=== PATIENT | female | born 1995 | race Two or more races ===

== ENCOUNTER 2019-04-09 05:35 | Emergency (ER) | payer MEDICAID ==
[~2019-04-09] VITALS: Ht 162.6 cm; Wt 63.5 kg
[2019-04-09 05:41] VITALS: BP 128/78
--- NOTE | 2019-04-09 05:41 | NUR ---
ED Nurse Note: pt brought in by ambulance from street accompanied by [employer]. per report, pt was running around [address] naked and screaming. pt admitted the episode. pt stated she is having a mental breakdown. pt stated she was recently diagnosed with schizophrenia but does not take any medication. pt denies any SI or HI. pt states she hears voices and the voices are telling her that she is worthless. pt is ambulatory. VSS
--- NOTE | 2019-04-09 05:57 | Emergency Room Report ---
History of Present Illness General Chief Complaint: Behavioral Complaint Source: Patient (Dominguez Rodrigez MD) Present Illness HPI Disclaimer: Please note that this report is being documented using [employer] technology. This can lead to erroneous entry secondary to incorrect interpretation by the dictating instrument. HPI: 24-year-old female arrives by EMS for evaluation of psychotic features and bizarre behavior. The patient was reportedly found naked walking around [facility] and brought for evaluation by EMS. She was agitated and stating that her schizophrenia was out of control. She denied any self-harm or ingestion of medication or illicit drugs. She had no complaints and states she was naked because she was having sex nearby, felt ashamed and then ran away without her clothing. She is currently stating that she hears voices but they do not tell her to harm herself and she has no SI or HI. Denies drug or alcohol use. She would like psychiatric evaluation. She comes in by EMS but not on psychiatric hold. She complained of mild shortness of breath while on the gurney but this has resolved. She is noting some swelling over the feet but she has been walking a lot recently and arrives without shoes. Denies injury. She denies any headache, vision changes, chest pain, abdominal pain, nausea, vomiting. She is afraid she might be . States she had an abnormal period 2 weeks ago. Denies any vaginal bleeding, dysuria, hematuria. PMH: Schizophrenia PSH: Denies Allergies: Denies Social Hx: Reports former drug use but no longer. Denies alcohol or tobacco use (Dominguez Rodrigez MD) Allergies: Coded Allergies: No Known Allergies (Unverified , 04/09/19) Patient History Last Menstrual Period: unk (Dominguez Rodrigez MD) Nursing Documentation-PMH Past Medical History: No History, Except For History Of Psychiatric Problem: Yes - SCHIZOPHRENIA (Dominguez Rodrigez MD) Review of Systems All Other Systems: negative except mentioned in HPI (Dominguez Rodrigez MD) Physical Exam Vital Signs Date Time Temp Pulse Resp B/P (MAP) Pulse Ox O2 Delivery O2 Flow Rate FiO2 04/09/19 05:36 98.6 88 16 132/78 (96) 98 Room Air General: Awake and alert, no acute distress HEENT: NC/AT. EOMI. PERRLA. Pupils are 4 mm. Moist mucous membranes Cardiovascular: RRR. S1 and S2 normal. No murmur appreciated Resp: Normal work of breathing. No cough, wheezing or crackles appreciated Abdomen: Abdomen is soft, nondistended. Nontender Skin: Intact. No abrasions, laceration or rash over the exposed skin. Abrasions over the great toes bilaterally. Subacute and healing. MSK: Moving all extremities. No obvious deformity. No unilateral calf swelling or tenderness. Lower extremities have symmetrical bulk and tone. Neuro: Awake and alert. Mild pressured speech but coherent. Few tangential thoughts. Reports hearing voices but does not appear to be responding to internal stimuli. Denies SI/HI. (Dominguez Rodrigez MD) Medical Decision Making Diagnostic Impression: Primary Impression: Psychosis ER Course Is a 24-year-old female with a reported history of schizophrenia presenting for evaluation of bizarre behavior. Patient is complaining of swelling of the lower extremities, concern over possible , shortness of breath that is now resolved and states she is hearing voices but denies any SI or HI. She arrives with stable vital signs and denies any ingestion. We will start broad metabolic, infectious and tox logic work-up. She will be given oral Haldol for her psychiatric symptoms. Disposition depending on lab work and reevaluation. (Dominguez Rodrigez MD) ER Course Patient was endorsed to me by Dr. Rodrigez. Patient was noted to be awake and alert no apparent distress. She is reportedly homeless. Patient states that she has some prior psychiatric history but is not currently taking any medications. Patient appears to be stable for outpatient mental health evaluation and denies suicidal thoughts. She does not appear to be under the influence of any drugs at this time.front services agent consult was obtained due to patient's homelessness.Patient is medically cleared for psychiatric placement. Laboratory Tests Test 04/09/19 05:45 White Blood Count 9.5 K/UL (4.8-10.8) Red Blood Count 3.81 M/UL (4.20-5.40) L Hemoglobin 9.0 G/DL (12.0-16.0) L Hematocrit 29.1 % (37.0-47.0) L Mean Corpuscular Volume 76 FL (80-99) L Mean Corpuscular Hemoglobin 23.5 PG (27.0-31.0) L Mean Corpuscular Hemoglobin Concent 30.8 G/DL (32.0-36.0) L Red Cell Distribution Width 16.4 % (11.6-14.8) H Platelet Count 293 K/UL (150-450) Mean Platelet Volume 6.2 FL (6.5-10.1) L Neutrophils (%) (Auto) 68.6 % (45.0-75.0) Lymphocytes (%) (Auto) 18.9 % (20.0-45.0) L Monocytes (%) (Auto) 6.0 % (1.0-10.0) Eosinophils (%) (Auto) 5.9 % (0.0-3.0) H Basophils (%) (Auto) 0.6 % (0.0-2.0) Urine Color Pale yellow Urine Appearance Clear Urine pH 6 (4.5-8.0) Urine Specific [place] 1.015 (1.005-1.035) Urine Protein Negative (NEGATIVE) Urine Glucose (UA) Negative (NEGATIVE) Urine Ketones Negative (NEGATIVE) Urine Blood 3+ (NEGATIVE) H Urine Nitrite Negative (NEGATIVE) Urine Bilirubin Negative (NEGATIVE) Urine Urobilinogen Normal MG/DL (0.0-1.0) Urine Leukocyte Esterase 2+ (NEGATIVE) H Urine RBC 2-4 /HPF (0 - 2) H Urine WBC 2-4 /HPF (0 - 2) Urine Squamous Epithelial Cells Few /LPF (NONE/OCC) Urine Bacteria Few /HPF (NONE) Urine HCG, Qualitative Negative (NEGATIVE) Sodium Level 140 MMOL/L (136-145) Potassium Level 4.4 MMOL/L (3.5-5.1) Chloride Level 106 MMOL/L (98-107) Carbon Dioxide Level 27 MMOL/L (21-32) Anion Gap 7 mmol/L (5-15) Blood Urea Nitrogen 10 mg/dL (7-18) Creatinine 1.3 MG/DL (0.55-1.30) Estimate Glomerular Filtration Rate 50.3 mL/min (>60) Glucose Level 86 MG/DL (74-106) Calcium Level 8.1 MG/DL (8.5-10.1) L Total Bilirubin 0.2 MG/DL (0.2-1.0) Aspartate Amino Transferase (AST) 21 U/L (15-37) Alanine Aminotransferase (ALT) 17 U/L (12-78) Alkaline Phosphatase 105 U/L (46-116) Total Creatine Kinase 90 U/L (26-308) Troponin I 0.001 ng/mL (0.000-0.056) Pro-B-Type Natriuretic Peptide 36 pg/mL (0-125) Total Protein 7.8 G/DL (6.4-8.2) Albumin 3.1 G/DL (3.4-5.0) L Globulin 4.7 g/dL Albumin/Globulin Ratio 0.7 (1.0-2.7) L Salicylates Level 0.5 ug/mL (2.8-20) L Urine Opiates Screen Negative (NEGATIVE) Acetaminophen Level < 2 MCG/ML (10-30) L Urine Barbiturates Screen Negative (NEGATIVE) Phencyclidine (PCP) Screen Negative (NEGATIVE) Urine Amphetamines Screen Negative (NEGATIVE) Urine Benzodiazepines Screen Negative (NEGATIVE) Urine Cocaine Screen Negative (NEGATIVE) Urine Marijuana (THC) Screen Negative (NEGATIVE) Serum Alcohol < 3 mg/dL (Mohinder Gordon MD) Last Vital Signs Date Time Temp Pulse Resp B/P (MAP) Pulse Ox O2 Delivery O2 Flow Rate FiO2 04/09/19 05:36 98.6 88 16 132/78 (96) 98 Room Air (Dominguez Rodrigez MD) Status: improved (Mohinder Gordon MD) Disposition: XFER TO PSYCH HOSP/UNIT Condition: Stable Dominguez Rodrigez MD Apr 09, 2019 05:57 Mohinder Gordon MD Apr 09, 2019 07:49
--- NOTE | 2019-04-09 05:57 | NUR ---
ED Nurse Note: urine and blood sample sent down to lab
--- NOTE | 2019-04-09 06:00 | NUR ---
ED Nurse Note: PO haldol administered. pt is in bed awake. no acute distress noted.
[2019-04-09 06:02] LABS: APPEARANCE,URINE CLEAR; BILIRUBIN, URINE NEGATIVE (NEGATIVE); COLOR,URINE PALE YELLOW; GLUCOSE, URINE (UA) NEGATIVE (NEGATIVE); KETONES,URINE NEGATIVE (NEGATIVE); LEUKOCYTE ESTERASE ,URINE 2+ (NEGATIVE); NITRITE,URINE NEGATIVE (NEGATIVE); PH,URINE 6 (4.5-8.0); PROTEIN,URINE NEGATIVE (NEGATIVE); UROBILINOGEN,URINE NORMAL MG/DL (0.0-1.0)
[2019-04-09 06:05] LABS: BASOPHILS % (AUTO) 0.6 % (0.0-2.0); EOSINOPHILS % (AUTO) 5.9 % (0.0-3.0); HEMATOCRIT 29.1 % (37.0-47.0); LYMPHOCYTES % (AUTO) 18.9 % (20.0-45.0); MEAN CORPUSCULAR VOLUME 76 FL (80-99); NEUTROPHILS % (AUTO) 68.6 % (45.0-75.0); PLATELET COUNT 293 K/UL (150-450); RED BLOOD COUNT 3.81 M/UL (4.20-5.40); RED CELL DISTRIBUTION WIDTH 16.4 % (11.6-14.8); WHITE BLOOD COUNT 9.5 K/UL (4.8-10.8)
[2019-04-09 06:12] LABS: ANION GAP 7 mmol/L (5-15); BLOOD UREA NITROGEN 10 mg/dL (7-18); CALCIUM 8.1 MG/DL (8.5-10.1); CARBON DIOXIDE 27 MMOL/L (21-32); CHLORIDE 106 MMOL/L (98-107); CREATININE 1.3 MG/DL (0.55-1.30); POTASSIUM 4.4 MMOL/L (3.5-5.1); SODIUM 140 MMOL/L (136-145)
[2019-04-09 06:16] LABS: ALANINE AMINOTRANSFERASE 17 U/L (12-78); ALBUMIN 3.1 G/DL (3.4-5.0); ALBUMIN/GLOBULIN RATIO 0.7 (1.0-2.7); ALKALINE PHOSPHATASE 105 U/L (46-116); ASPARTATE AMINO TRANSFERASE 21 U/L (15-37); BILIRUBIN,TOTAL 0.2 MG/DL (0.2-1.0); CREATINE KINASE 90 U/L (26-308)
--- NOTE | 2019-04-09 06:45 | NUR ---
ED Nurse Note: CXR at bedside
--- NOTE | 2019-04-09 07:12 | NUR ---
HAND-OFF: Report given to CHER Tomlinson .
[2019-04-09 07:46] VITALS: BP 105/59
--- NOTE | 2019-04-09 07:49 | NUR ---
ED Nurse Note: pt eval by rn. pt easily awakens to verbal stimuli. denies SI/HI or hallucinations. cooperative with rn care. states she has nowhere to be dc'd and no ability for f/u care. aware. pt to have sw consult as ordered. food offered to pt. charge master specialist made.
--- NOTE | 2019-04-09 08:52 | NUR ---
ED Nurse Note: food tray given to pt. aware awaiting sw consult
--- NOTE | 2019-04-09 09:57 | NUR ---
ED Nurse Note: pt eval by ioana syed. pt desires to have voluntary pysch admission. viscose cellar charge hand aware and facilities being called for placement.
--- NOTE | 2019-04-09 10:00 | NUR ---
Social Service Note JOZEF met with patient to assess for homelessness and community resources. Patient is alert, oriented and verbally responsive. Patient states she ran away from her family in [facility]. Patient's mother's name is Gutierrez Lazaro. Patient has not been reported missing in [place]. JOZEF left a message for [facility] missing persons [phone] and [phone]. Patient states she has been in [place] for 2 years and has not been in contact with her family. Patient requested for JOZEF to attempt to contact family. JOZEF completed a skip trace, JOZEF identified family members however have not been unable to locate a viable phone number, social media also explored. Patient states she was diagnosed with schizophrenia since being in [place]. Patient states however she has not followed up with mental health clinics. Patient states she receives food stamps but has been denied GR due to lack of no ID. Patient with straight [facility]. During interview patient responding to internal stimuli. Patient requesting voluntary placement in a psych facility for medication management. Patient is fearful that she will walk into traffic if she doesn't receive psychiatric treatment. Patient states she is unable to control the voices. Patient states she has been homeless since arriving in [place]. Patient states she hitchhiked to [place] and didn't have a housing plan. Patient states she has attempted to utilized homeless shelters but has not been successful. Patient states she primarily stays around the [facility] area. This is an area in which she is familiar. JOZEF faxed referral to [facility]. intake [phone] (p) [phone]. Nursing will follow up on acceptance. JOZEF discused with BERNA DOWNEY.
--- NOTE | 2019-04-09 12:00 | NUR ---
ED Nurse Note: pt remains without changes in mentation, remains cooperative with rn care. denies c/o. awaiting voluntary [facility] bed availability.
--- NOTE | 2019-04-09 14:00 | NUR ---
ED Nurse Note: pt remains without new c/o cooperative with rn care.
--- NOTE | 2019-04-09 14:42 | Diagnostic Imaging Report ---
Indication: Shortness of breath Technique: One view of the chest Comparison: none Findings: Lungs and pleural spaces are clear. Heart size is normal. Impression: No acute process
[2019-04-09 16:23] VITALS: BP 98/53
--- NOTE | 2019-04-09 16:24 | NUR ---
ED Nurse Note: pt given updates re psych bed not avail at this time declines po intake or voiding desire. resting in room with eyes closed and easily awakens.
--- NOTE | 2019-04-09 16:40 | NUR ---
ED Nurse Note: pt ambulating to brp to void
--- NOTE | 2019-04-09 17:15 | NUR ---
ED Nurse Note: regular dietary dinner tray given to pt. pt remains calm and cooperative.
--- NOTE | 2019-04-09 19:14 | NUR ---
ED Nurse Note: report given to oncoming dshift rn, assuming care. aware pt to be admitted to [facility]. pt remains cooperative with plan. rn aware of clothin location that is provided for pt.
[2019-04-09 19:20] VITALS: BP 110/69
--- NOTE | 2019-04-09 19:20 | NUR ---
ED Nurse Note: Recieved report from Kayley KWON. Pt awake, alert, oriented, verbally responisve. Apperas to be calm and cooperative. No SOB. VSS.
--- NOTE | 2019-04-09 21:00 | NUR ---
ED Nurse Note: REPORT GIVEN TO CHER MEJIA FROM [facility], PT GOING TO [id number]
[2019-04-09 22:30] VITALS: BP 112/71
[2019-04-09 22:50] VITALS: BP 112/71
--- NOTE | 2019-04-09 22:50 | NUR ---
ED Nurse Note: Pt cleared by TAWANDA to be transferred to [facility] accompanied by 2 EMT via [facility]. Report given to Bharat KWON. Pt alert and oriented, verbally responisve. No SOB. Breathing even and unlabored. Afebrile. ID band and IV line removed. All belongings was given to the patient. VSS.
--- NOTE | 2019-04-12 00:18 | Cardiology Report ---
APPROVED REPORT EKG Measurement Heart [id number] Normal sinus rhythm Normal ECG
== END 2019-04-09 22:50 ==
LOC: EDBD 05:35 → EMR 06:15
DX: F29 Unspecified psychosis not due to a substance or known physiological condition (principal); F20.9 Schizophrenia, unspecified; R60.0 Localized edema; R06.02 Shortness of breath; Z59.0 Homelessness
CPT/HCPCS: 36415; 71045; 80053; 80307; 81003; 81025; 82550; 83880; 84484; 85025; 93005; G0480; G0481; Z7502; 99284

== ENCOUNTER 2019-04-24 14:23 | Emergency (ER) | payer MEDICAID ==
[~2019-04-24] VITALS: Ht 154.9 cm; Wt 81.6 kg
[2019-04-24 14:53] LABS: APPEARANCE,URINE CLEAR; BILIRUBIN, URINE NEGATIVE (NEGATIVE); COLOR,URINE PALE YELLOW; GLUCOSE, URINE (UA) NEGATIVE (NEGATIVE); KETONES,URINE NEGATIVE (NEGATIVE); LEUKOCYTE ESTERASE ,URINE 1+ (NEGATIVE); NITRITE,URINE NEGATIVE (NEGATIVE); PH,URINE 9 (4.5-8.0); PROTEIN,URINE NEGATIVE (NEGATIVE); UROBILINOGEN,URINE NORMAL MG/DL (0.0-1.0)
--- NOTE | 2019-04-24 14:53 | NUR ---
ED Nurse Note: Patient walked into ED C/O of N/V since this morning and epigastric pain 12/31. A/Ox3 but patient reports feeling disoriented and states, "I feel like I'm in [place]." She also reports taking a pill this morning which she cannot remember what it's for. Steady gait noted. No SOB or CP. Urine collected and sent to lab.
--- NOTE | 2019-04-24 15:18 | Emergency Room Report ---
History of Present Illness General Chief Complaint: Vomiting Source: Patient Present Illness HPI 24-year-old female presents ED for evaluation. Complaining of nausea and vomiting. Started this morning had one episode of vomiting. Feels nauseous. States symptoms started shortly after taking a new medication. Was recently diagnosed with schizophrenia. Patient residing in a mental health facility. Brought here by a friend. Denies SI or HI. Denies drug use. No other aggravating relieving factors. Denies any other associated symptoms Allergies: Coded Allergies: No Known Allergies (Unverified , 04/09/19) Patient History Past Medical History: psych hx Past Surgical History: none Pertinent Family History: none Social History: Denies: smoking, alcohol use, drug use Last Menstrual Period: 2 WEEKS AGO Now: No Immunizations: UTD Reviewed Nursing Documentation: PMH: Agreed; PSxH: Agreed Nursing Documentation-PMH Past Medical History: No Stated History Review of Systems All Other Systems: negative except mentioned in HPI Physical Exam Vital Signs Date Time Temp Pulse Resp B/P (MAP) Pulse Ox O2 Delivery O2 Flow Rate FiO2 04/24/19 14:27 97.9 81 19 110/64 (79) 98 Room Air Sp02 EP Interpretation: reviewed, normal General Appearance: no apparent distress, alert, GCS 15, non-toxic Head: normocephalic, atraumatic Eyes: bilateral eye normal inspection, bilateral eye PERRL ENT: hearing grossly normal, normal pharynx, no angioedema, normal voice, other - cerumen impaction L canal Neck: full range of motion, supple/symm/no masses Respiratory: chest non-tender, lungs clear, normal breath sounds, speaking full sentences Cardiovascular #1: regular rate, rhythm, no edema Cardiovascular #2: 2+ carotid (R), 2+ carotid (L), 2+ radial (R), 2+ radial (L) , 2+ dorsalis pedis (R), 2+ dorsalis pedis (L) Gastrointestinal: normal bowel sounds, non tender, soft, non-distended, no guarding, no rebound Rectal: deferred Genitourinary: normal inspection, no CVA tenderness Musculoskeletal: back normal, gait/station normal, normal range of motion, non- tender Neurologic: alert, oriented x3, responsive, motor strength/tone normal, sensory intact, speech normal Psychiatric: judgement/insight normal, memory normal, no suicidal/homicidal ideation, anxious Reflexes: 3+ bicep (R), 3+ bicep (L), 3+ tricep (R), 3+ tricep (L), 3+ knee (R) , 3+ knee (L) Lymphatic: no adenopathy Medical Decision Making Diagnostic Impression: Primary Impression: Adverse reaction to drug Qualified Codes: T50.905A - Adverse effect of unspecified drugs, medicaments and biological substances, initial encounter Additional Impression: Vomiting Qualified Codes: R11.2 - Nausea with vomiting, unspecified ER Course Hospital Course 24 yo F presents to ED with nausea and vomiting after taking new psychiatric medication Differential diagnoses include: adverse reaction, anaphylaxis, UTI Clinical course Patient placed on stretcher. After initial history and physical I ordered UA, UDS, urine . UA negative. pregnacny negative. UDS negative vitals stable. 1 episode of vomiting. tolerating PO intake in ED discussed findings with patient. likely adverse reaction to new medcation. recommend followup with psychiatrist to consider alternative medications. safe for discharge with close outpatient followup. also some cerumen impaction to L ear. i'll prescribe debrox. i'll provide referrals Diagnosis - adverse reaction to medcation, vomiting Stable and discharged home with prescriptions for Rx zofran, zantac. Instructed to followup with PMD/psych. Return to ED if symptoms recur or worsen Labs Test 04/24/19 14:40 Urine Color Pale yellow Urine Appearance Clear Urine pH 9 (4.5-8.0) Urine Specific [place] 1.015 (1.005-1.035) Urine Protein Negative (NEGATIVE) Urine Glucose (UA) Negative (NEGATIVE) Urine Ketones Negative (NEGATIVE) Urine Blood Negative (NEGATIVE) Urine Nitrite Negative (NEGATIVE) Urine Bilirubin Negative (NEGATIVE) Urine Urobilinogen Normal MG/DL (0.0-1.0) Urine Leukocyte Esterase 1+ (NEGATIVE) Urine RBC 0-2 /HPF (0 - 2) Urine WBC 0-2 /HPF (0 - 2) Urine Squamous Epithelial Cells Few /LPF (NONE/OCC) Urine Bacteria Few /HPF (NONE) Urine HCG, Qualitative Negative (NEGATIVE) Urine Opiates Screen Negative (NEGATIVE) Urine Barbiturates Screen Negative (NEGATIVE) Phencyclidine (PCP) Screen Negative (NEGATIVE) Urine Amphetamines Screen Negative (NEGATIVE) Urine Benzodiazepines Screen Negative (NEGATIVE) Urine Cocaine Screen Negative (NEGATIVE) Urine Marijuana (THC) Screen Negative (NEGATIVE) Last Vital Signs Date Time Temp Pulse Resp B/P (MAP) Pulse Ox O2 Delivery O2 Flow Rate FiO2 04/24/19 14:27 97.9 81 19 110/64 (79) 98 Room Air Status: improved Disposition: HOME, SELF-CARE Condition: Stable Scripts Carbamide Peroxide (DEBROX) 15 Ml Drops 5 DROP LEFT EAR TWICE A DAY for 4 Days, ML 0 Refills Prov: Yayo Hopson MD 04/24/19 Ranitidine Hcl* (ZANTAC*) 150 Mg Tablet 150 MG ORAL DAILY, #30 TAB Prov: Yayo Hopson MD 04/24/19 Ondansetron Odt* (ZOFRAN ODT*) 4 Mg Tab.rapdis 4 MG BC EVERY 6 HOURS PRN for Nausea & Vomiting, #10 TAB 0 Refills Prov: Yayo Hopson MD 04/24/19 Referrals: NOT CHOSEN IPA/,REFERRING (PCP) Yayo Hopson MD Apr 24, 2019 15:18
[2019-04-24 15:30] VITALS: BP 143/83
[2019-04-24] MEDS ORDERED: RANITIDINE HCL150 MG ORAL (15:35)
[2019-04-24] MEDS ORDERED: ONDANSETRON ODT4 MG BC (15:35)
[2019-04-24] MEDS ORDERED: DEBROX15 M1 LEFT EAR (15:36)
[2019-04-24 16:08] VITALS: BP 132/82
--- NOTE | 2019-04-24 16:09 | NUR ---
ER DISCHARGE NOTE: Patient is cleared to be discharged per ERMD, pt is aox4, on room air, with stable vital signs. pt was given dc and prescription instructions, pt was able to verbalize understanding, pt id band and iv site removed without complications. pt is able to ambulate with steady gait. pt took all belongings. Patient called [facility] and asked staff to pick her up from the hospital.
== END 2019-04-24 16:08 | disposition home or self-care (01) ==
LOC: EMR 14:39
DX: R11.2 Nausea with vomiting, unspecified (principal); T50.905A Adverse effect of unspecified drugs, medicaments and biological substances, initial encounter; F20.9 Schizophrenia, unspecified; Y92.9 Unspecified place or not applicable
CPT/HCPCS: 80307; 81003; 81025; Z7502; 99283